=== PATIENT | female | born 1960 | race Caucasian/White ===

== ENCOUNTER 2021-07-29 04:48 | Emergency (ER) | payer BC ==
[~2021-07-29] VITALS: Ht 165.1 cm; Wt 81.7 kg
[~2021-07-29 04:48] MED LIST: ADVAIR HFA 230M12 GM INH; CLARITIN10 MG PO; NEXIUM40 MG PO; PROAIR HFA8.5 GM INH
[2021-07-29] MEDS ORDERED: CARVEDILOL6.25 M1 PO (05:10)
[2021-07-29] MEDS ORDERED: LOSARTAN-HCTZ1 EAC3 PO (05:10)
[2021-07-29] MEDS ORDERED: SERTRALINE HCL100 MG PO (05:10)
[2021-07-29] MEDS ORDERED: MONTELUKAST SODI4 M1 PO (05:11)
[2021-07-29] MEDS ORDERED: EZALLOR SPRINKL10 MG PO (05:11)
[2021-07-29 05:44] LABS: ABSOLUTE EOSINOPHILS 0.2 thou/uL (0.0-0.7); ABSOLUTE MONOCYTES 0.5 thou/uL (0.0-1.2); ABSOLUTE NEUTROPHILS 2.6 thou/uL (1.6-8.1); BASOPHILS 0.8 %; EOSINOPHILS 3.2 %; HEMATOCRIT 37.3 % (37.0-47.0); HEMOGLOBIN 12.9 gm/dL (12.0-15.0); LYMPHOCYTES 36.8 %; MCHC 34.6 g/dL (28.0-37.0); MCV 86.8 fL (80.0-100.0); MONOCYTES 9.9 %; MPV 10.5 fl. (7.2-11.1); NUCLEATED RBCS 0 /100WBC; PLATELET COUNT* 203 thou/uL (150-400); POLYS 49.3 %; RDW-CV 12.9 % (10.5-14.5); WBC 5.3 thou/uL (4.0-11.0)
[2021-07-29 05:46] LABS: CALCIUM 8.7 mg/dL (8.5-10.1); CREATININE 0.8 mg/dL (0.6-1.3); POTASSIUM 3.5 mmol/L (3.5-5.1)
[2021-07-29 05:50] LABS: ALBUMIN 3.6 g/dL (3.4-5.0); TOTAL BILIRUBIN 0.2 mg/dL (<0.1-1.0); TOTAL PROTEIN 7.5 g/dL (6.4-8.2)
[2021-07-29 07:24] LABS: URINE BILIRUBIN NEGATIVE (Negative); URINE BLOOD NEGATIVE (Negative); URINE CLARITY CLEAR; URINE COLOR YELLOW; URINE GLUCOSE-RANDOM NEGATIVE (Negative); URINE KETONES NEGATIVE (Negative); URINE LEUKOCYTES-REFLEX TRACE (Negative); URINE NITRITE-REFLEX NEGATIVE (Negative); URINE PROTEIN NEGATIVE (Negative); URINE SPECIFIC GRAVITY 1.015 (1.005-1.030); URINE UROBILINOGEN 0.2 E.U./dl (0.2-1.0)
[2021-07-29 07:36] LABS: SQUAMOUS 0-3 Few /LPF (0-3)
[2021-07-29 07:37] LABS: BACTERIA-REFLEX None Seen /HPF (None Seen); CASTS None Seen /LPF (None Seen); MUCUS None Seen strn/LPF (None Seen); URINE RBC 0-2 Rare /HPF (0-2); URINE WBC-REFLEX None Seen /HPF (0-5)
[2021-07-29 07:38] LABS: CRYSTALS None Seen /LPF (None Seen)
[2021-07-29] MEDS ORDERED: CARAFATE 1 GM TA1 GM PO (09:03)
[2021-07-29 09:21] VITALS: BP 174/72
--- NOTE | 2021-07-29 09:39 | EKG ---
[place] [address] ELECTROCARDIOGRAM REPORT Name: SCOOTER HUANG Room: [facility]#: [id number] Admission: 07/29/21 Attend Phys: Discharge: 07/29/21 Date of : 64 Date of Service: 07/29/21500 Report #: [id number] THIS REPORT FOR: //name// [facility] ED Test Date: 2021-07-29 Test Time: 05:01:55 Pat Name: SCOOTER HUANG Department: Room: Gender: [employer]: VANESSA : 1960 Requested By: Samara Burdick Order Number: [id number] MD: Laurent Salgado Measurements Intervals [place] Rate: 69 P: 43 OK: 178 QRS: 16 QRSD: 93 T: 44 QT: 400 QTc: 429 Interpretive Statements Sinus rhythm Electronically Signed On 07-29-2021 9:39:08 REGISTERED APPRAISER by Laurent Salgado [email or web address] <ELECTRONICALLY SIGNED> By: Laurent Salgado MD, [facility] 07/29/21 0939 050 0501 Laurent Salgado MD, FACC /EPI
== END 2021-07-29 09:22 | disposition home or self-care (01) ==
LOC: M.ERS 04:48
PROVIDERS: Personal Emergency Response Attendant
DX: K29.00 Acute gastritis without bleeding (principal); R10.13 Epigastric pain; J45.909 Unspecified asthma, uncomplicated; Z90.49 Acquired absence of other specified parts of digestive tract; Z90.89 Acquired absence of other organs; Z98.890 Other specified postprocedural states; Z79.891 Long term (current) use of opiate analgesic; Z79.1 Long term (current) use of non-steroidal anti-inflammatories (NSAID); Z79.899 Other long term (current) drug therapy; Z88.6 Allergy status to analgesic agent; Z88.5 Allergy status to narcotic agent; Z88.7 Allergy status to serum and vaccine; Z88.8 Allergy status to other drugs, medicaments and biological substances